=== PATIENT | male | born 1970 | race American Indian/Alaskan Native ===

== ENCOUNTER → 2022-03-13 | Outpatient (CLI) | payer OTHER | END | disposition home or self-care (01) | LOC: SLR 11:00 | PROVIDERS: ATTEND Internal Medicine | DX: G47.30 Sleep apnea, unspecified (principal); E66.2 Morbid (severe) obesity with alveolar hypoventilation | CPT/HCPCS: 95800 ==

== ENCOUNTER 2022-04-05 11:28 | Emergency (ER) | payer OTHER ==
--- NOTE | 2022-04-05 13:11 | XRay Report ---
XR spine cervical 2-3V HISTORY: neck pain COMPARISON: None. TECHNIQUE: 4 view(s) of the cervical spine obtained. FINDINGS: Vertebrae: Minimal retrolisthesis of C3 on C4 and C4-C5. Vertebral body heights are preserved. C1 and C2 are congruent. Odontoid process is intact. Spondylosis:Multilevel spondylosis most pronounced at C6-C7 in which there is moderate disc space hei ght loss at osteophyte formation. Soft tissues: No prevertebral soft tissue thickening. IMPRESSION: 1. No acute findings. Spondylosis most pronounced C6-7. Signer Name: Arias Snell MD Signed: 04/05/2022 1:06 PM Workstation Name: [id number][id number]
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
[2022-04-05 14:28] VITALS: BP 135/87
== END 2022-04-05 14:30 | disposition home or self-care (01) ==
LOC: ED 11:28
DX: S39.012A Strain of muscle, fascia and tendon of lower back, initial encounter (principal); M62.830 Muscle spasm of back; M46.90 Unspecified inflammatory spondylopathy, site unspecified; V89.2XXA Person injured in unspecified motor-vehicle accident, traffic, initial encounter; Y93.89 Activity, other specified; Y92.89 Other specified places as the place of occurrence of the external cause; Y99.8 Other external cause status
CPT/HCPCS: 72040; 99283